=== PATIENT | female | born 1975 | race Two or more races ===

== ENCOUNTER 2017-02-06 18:03 | Emergency (ER) | payer BC, SELFPAY ==
--- NOTE | ~2017-02-06 | ER ---
PATIENT'S NAME: SHAI MONTES [facility] AGE: 41 Y [address] ROOM: [place] [id number] LOCATION: ED ADMIT DATE: 02/06/2017 ER/Outpatient Report DISCHARGE DATE: 02/06/2017 FAMILY PHYSICIAN: Max Pablo MD ATTENDING PHYSICIAN: Rd Kennedy Time of Arrival: 1818 hours. Time of Evaluation: 1825 hours. CHIEF COMPLAINT: Heartburn. HISTORY OF PRESENT ILLNESS: The patient is a 41-year-old female, who presents to the emergency department today with chief complaint of heartburn. She reports this started yesterday. She has had nausea, no vomiting. It is in the mid epigastric region and radiates all the way up to her neck. She does have a little bit of radiation to her left lower quadrant. She does have some chills. She has some chronic constipation. She reports a burning type pain. She had similar symptoms in September and presented to the emergency department. GI cocktail was given when this resulted. PAST MEDICAL HISTORY: Chronic migraines, gait disorder, spondylolisthesis, pseudotumor cerebri, and chronic pain. PAST SURGICAL HISTORY: Cholecystectomy, , and hysterectomy. SOCIAL HISTORY: The patient smokes a quarter-pack per day for 25 years. Denies any alcohol or illicit drug use. ALLERGIES: BACTRIM. MEDICATIONS: Please see list. PRIMARY CARE DOCTOR: Max Pablo M.D. REVIEW OF SYSTEMS: All systems are reviewed by myself and are negative with the exception of those discussed in the HPI and past medical history. PATIENT'S NAME: SHAI MONTES [facility] AGE: 41 Y [address] ROOM: [place] [address] LOCATION: [facility] ADMIT DATE: 02/06/2017 ER/Outpatient Report DISCHARGE DATE: 02/06/2017 FAMILY PHYSICIAN: Max Pablo MD ATTENDING PHYSICIAN: Rd Kennedy PHYSICAL EXAMINATION: VITAL SIGNS: Weight 59.1 kg. Blood pressure 110/71, pulse 99, respiratory rate 16, temperature 97.9, and oxygen saturation 97% on room air. GENERAL: The patient is a 41-year-old female, who appears at stated age, in mild acute distress at this time, well developed, well nourished. HEENT: Head: Normocephalic, atraumatic. Pupils are equal, round, and reactive to light. Oropharynx is clear. Mucous membranes are moist. NECK: Supple. There is no nuchal rigidity. CARDIOVASCULAR: Regular rate and rhythm. No murmurs, rubs, or gallops. LUNGS: Clear to auscultation bilaterally. No wheezes, rales, or rhonchi. ABDOMEN: Soft. Mild midepigastric tenderness to palpation. No rebound, rigidity, or guarding. Positive bowel sounds. MUSCULOSKELETAL: The patient moves all 4 extremities. 5/5 muscle strength. SKIN: Warm and dry. There are no rashes or lesions noted. LABORATORY DATA AND X-RAYS: Labs and x-rays are obtained. EKG is obtained and shows sinus rhythm with a rate of 91. Normal axis. Normal interval. No ST elevation, ST depression, or T-wave inversions. CBC is normal. CMP is normal. Coags are normal. LFTs normal. Magnesium is normal. CK is normal. CK-MB is normal. Troponin is less than 0.04. Magnesium is normal. Lipase is normal. H. pylori is negative. Repeat 2-hour cardiac enzymes are obtained, they are normal. Repeat 2-hour EKG is obtained and showed sinus rhythm with a rate of 77. Normal axis. Normal interval. No ST elevation, ST depression, or T-wave inversions. IMPRESSION: 1. Acute midepigastric abdominal pain. 2. Initial visit. EMERGENCY DEPARTMENT COURSE: The patient is brought back to the examination room. Seen and evaluated by myself. An IV is established. Laboratory analysis and imaging are obtained as described above. While the patient's symptoms did sound GI in nature, certainly with her smoking history, I did feel that cardiac workup was essential. We did do 2-hour cardiac enzymes, they are normal. Rest of her lab work is normal. Chest x-ray is normal. I have recommended close followup with primary care doctor, Dr. Pablo in 2 days for re-evaluation. I have also recommended close followup with Gastroenterology. I have asked that she follow up with them. She is to call to make an appointment for possible endoscopy. I have written a prescription for Carafate for home. The patient was given a GI cocktail, a liter of normal saline IV here as well as 2 mg of morphine with improvement of the patient's symptoms. The patient is agreeable to plan without further questions at this time. PATIENT'S NAME: SHAI MONTES [facility] AGE: 41 Y [address] ROOM: [place], [place] [address] LOCATION: [facility] ADMIT DATE: 02/06/2017 ER/Outpatient Report DISCHARGE DATE: 02/06/2017 FAMILY PHYSICIAN: Max Pablo MD ATTENDING PHYSICIAN: Rd Kennedy DISPOSITION: The patient is discharged to home in good condition. DO MAGDALENA [place]/radha /[id number] d: 02/07/17 0229 t: 02/08/17 1341, OUTPATIENT REPORT
[~2017-02-06 18:03] MED LIST: CALCIUM 500 +1 EACH PO; DHE SUB-Q; ELAVIL25 MG PO; FLEXERIL10 MG PO; LEVOTHROID (S100 MCG PO; PERCOCET PO; PROTONIX40 MG PO; REGLAN10 MG PO; THERA-VITE W/ B1 TAB PO; TOPAMAX25 MG PO; ULTRAM50 MG PO; XANAX1 MG PO; ZANTAC300 MG PO; ZOFRAN4 MG PO; [UNRECOGNIZED DRUG - REMARK] PO
[2017-02-06 18:50] LABS: BASOPHIL # 0.1 K/uL (0.0-0.2); BASOPHIL % 0.8 %; EOSINOPHIL # 0.3 K/uL (0.0-0.5); EOSINOPHIL % 3.3 %; HEMATOCRIT 42.2 % (33.0-46.0); HEMOGLOBIN 13.9 g/dL (11.0-15.0); IMMATURE GRANULOCYTE # 0.1 K/uL (0.0-0.3); IMMATURE GRANULOCYTE % 0.6 %; LYMPHOCYTE # 2.6 K/uL (0.8-4.0); LYMPHOCYTE % 29.2 %; MCH 28.1 pg (27.0-34.0); MCHC 32.9 gm/dL (32.0-36.5); MCV 85.4 fl (83.0-98.0); MONOCYTE # 0.4 K/uL (0.0-1.0); MPV 9.3 fl (9.4-12.4); NEUTROPHIL # (ANC) 5.5 K/uL (1.8-7.8); NEUTROPHIL % 62.1 %; NRBC % 0 /100WBC (0-0.00); PLATELET COUNT 367 K/uL (150-450); RBC 4.94 M/uL (3.50-5.50); RDW-CV 12.5 % (11.9-14.6); WBC 8.9 K/uL (4.0-11.0)
[2017-02-06 19:00] LABS: PROTIME 10.4 SECONDS (9.6-11.1); PTT 29 SECONDS (25-32)
[2017-02-06 19:10] LABS: ALBUMIN 3.8 gm/dL (3.5-5.0); ALK PHOS 54 IU/L (33-138); ALT 14 IU/L (12-78); ANION GAP 11.7 (10.0-19.0); AST 13 IU/L (10-40); BLOOD UREA NITROGEN 10 mg/dL (6-24); CALCIUM 8.7 mg/dL (8.5-10.5); CHLORIDE 110 mMol/L (96-110); CO2 24 mMol/L (22-32); CPK 79 IU/L (21-215); CREATININE 0.9 mg/dL (0.5-1.1); ESTIMATED GFR (MDRD EQUATION) > 60; MAGNESIUM 2.1 mg/dL (1.3-2.6); POTASSIUM 3.7 mMol/L (3.7-5.1); SODIUM 142 mMol/L (135-145); TOTAL PROTEIN 7.5 g/dL (6.0-8.4)
[2017-02-06 19:12] LABS: TOTAL BILIRUBIN 0.3 mg/dL (0.0-1.5)
[2017-02-06 21:13] LABS: CPK 64 IU/L (21-215)
[2017-03-07] MEDS ORDERED: XANAX PO (14:07)
[2017-03-07] MEDS ORDERED: FLEXERIL10 MG PO (14:07)
[2017-03-07] MEDS ORDERED: REGLAN10 MG PO (14:08)
[2017-03-07] MEDS ORDERED: TOPAMAX25 MG PO (14:10)
[2017-03-07] MEDS ORDERED: OSCAL + D500 MG PO (14:11)
[2017-03-07] MEDS ORDERED: SYSTANE ULTRA 010 ML OPHTH (14:12)
== END 2017-02-06 21:28 | disposition disaster alternative care site (69) ==
LOC: GMED 18:03
PROVIDERS: Emergency Medicine
DX: R10.13 Epigastric pain (principal); F17.210 Nicotine dependence, cigarettes, uncomplicated; Z90.710 Acquired absence of both cervix and uterus; Z90.49 Acquired absence of other specified parts of digestive tract; Z88.1 Allergy status to other antibiotic agents
CPT/HCPCS: J0780; J1200; J2270; J2405; J7030

== ENCOUNTER → 2017-03-08 | Day surgery (SDC) | payer BC, SELFPAY ==
[~2017-03-08] VITALS: Ht 162.6 cm; Wt 56.1 kg
[~2017-03-08] MED LIST changes: +OSCAL + D500 MG PO; +SYSTANE ULTRA 010 ML OPHTH; +XANAX PO
== END | disposition disaster alternative care site (69) ==
LOC: GPOC 03-07 13:00 → GEND 08:55 → GPOC 05-22 08:00 → GOPP 05-22 08:00 → GEND 05-23 08:00 → GSIP 05-23 08:00
PROC: 0DB68ZX Excision of Stomach, Via Natural or Artificial Opening Endoscopic, Diagnostic (ICD-10-PCS; principal; 2017-03-08)
PROC: 0DB98ZX Excision of Duodenum, Via Natural or Artificial Opening Endoscopic, Diagnostic (ICD-10-PCS; 2017-03-08)
PROC: 0DBE8ZX Excision of Large Intestine, Via Natural or Artificial Opening Endoscopic, Diagnostic (ICD-10-PCS; 2017-03-08)
DX: K29.50 Unspecified chronic gastritis without bleeding (principal); K31.89 Other diseases of stomach and duodenum; K64.4 Residual hemorrhoidal skin tags; K64.8 Other hemorrhoids; K62.5 Hemorrhage of anus and rectum
CPT/HCPCS: J7030

== ENCOUNTER → 2017-06-15 | Outpatient (CLI) | payer BC ==
[2017-06-15 10:00] LABS: ALBUMIN 3.6 gm/dL (3.5-5.0); ANION GAP 8.6 (10.0-19.0); CALCIUM 8.6 mg/dL (8.5-10.5); POTASSIUM 3.6 mMol/L (3.7-5.1); TOTAL BILIRUBIN 0.2 mg/dL (0.0-1.5); TOTAL PROTEIN 7.3 g/dL (6.0-8.4)
== END | disposition disaster alternative care site (69) ==
LOC: LNHI 09:29
PROVIDERS: Internal Medicine Interventional Cardiology
DX: R07.9 Chest pain, unspecified (principal); I34.1 Nonrheumatic mitral (valve) prolapse

== ENCOUNTER → 2017-06-15 | Outpatient (CLI) | payer BC ==
--- NOTE | ~2017-06-15 | OR ---
PATIENT'S NAME: SHAI MONTES [facility] AGE: 41 Y [address] ROOM: [place] [address] LOCATION: [facility] ADMIT DATE: 06/15/2017 OR/Procedure Report DISCHARGE DATE: FAMILY PHYSICIAN: Max Pablo MD ATTENDING PHYSICIAN: KIRTI ACHARYA SURGEON: Amanuel Jacques MD MINIATURE SET BUILDER: DATE OF PROCEDURE: 06/15/2017 CALCIUM SCORE REPORT: REFERRING PHYSICIAN: Kirti Acharya MD INDICATION FOR STUDY: Chest pain, to evaluate for coronary artery disease. DESCRIPTION OF PROCEDURE: The procedure was explained to the patient and consent was obtained. Calcium scoring analysis was performed using 64-slice CT scanner. The total calcium score is 0. The noncardiac findings will be reported separately by the radiologist. MD MARVA PELAEZ/maricruzl /[id number] d: 06/19/17 1438 t: 06/30/17 1614, OPERATIVE SUMMARY
--- NOTE | ~2017-06-15 | ECHO ---
Transthoracic Echocardiography Report (TTE) Demographics Patient Name SHAI MONTES Date of Study 06/15/2017 Patient Number [id number] Visit Number [id number] Date of 1975 Room Number Accession Number [id number] Gender Female Age 41 year(s) Referring Samy Frausto MD Police Shift Commander Annette Rudd RVAnderson, Physician RDSERENA Physician Interpreting Amanda Cotto [employer] Sales Agent Physician MD Supervising Ordering Physician Amanda Cotto MD/MARKUS CLIFFORD Nurse Stress Cream Dipper Conclusions Contractility Score Summary Normal Left Ventricular contractility was noted. Summary Normal left ventricle size and function. The estimated left ventricular ejection fraction is 50%. Diastolic assessment reveals normal relaxation. Mild prolapse of the anterior mitral valve leaflet(s). Mild mitral regurgitation by color Doppler. Normal right ventricle structure and function. Procedure Type of Study TTE procedure:2D Echocardiogram. Procedure Date Date: 06/15/2017 Start: 01:13 PM Study Location: Echo Lab Technical Quality: Good visualization Indications:Mitral regurgitation and Mitral valve prolapse. Appropriate Use Criteria: 8 Patient Status: Routine Rhythm: NSR HR: 83 bpm BP: 105/63 mmHg M-Mode/2D Measurements LV Diastolic Dimension: 4.21 cm LV Systolic Dimension: 3.25 cm LV Septum Diastolic: 0.77 cm LV PW Diastolic: 0.71 cm AO Root Dimension: 2.1 cm Cardiac Output: 2.94 l/min LA Dimension: 2.7 cm EF Estimated: 50 % LVOT: 1.9 cm LVOT VTI: 12.5 cm RV Base: 2.06 cm LV Stroke volume: 35.42 ml RV Length: 6.86 cm TAPSE: 1.81 cm TDI-S': 11.4 cm/s Doppler Measurements AV Peak Velocity: 1.22 m/s MV Peak E-Wave: 0.68 m/s AV Peak Gradient: 5.95 mmHg MV Peak A-Wave: 0.48 m/s AV Mean Gradient: 4 mmHg MV E/A Ratio: 1.41 LVOT Peak Velocity: 0.64 m/s MV P1/2t: 48 msec TR Gradient:13.54 mmHg PV Peak Velocity: 0.65 m/s Estimated RAP:5 mmHg PV Peak Gradient: 1.69 mmHg Estimated RVSP: 19 mmHg Estimated PASP: 18.54 mmHg E' Septal Velocity: 0.11 m/s A' Septal Velocity: 0.05 m/s E' Lateral Velocity: 0.14 m/s A' Lateral Velocity: 0.11 m/s Findings Left Ventricle Normal left ventricle size and function. Diastolic assessment reveals normal relaxation. Right Ventricle Normal right ventricle structure and function. Left Atrium Normal left atrial size. There is no evidence of patent foramen ovale or atrial septal defect by color Doppler. Right Atrium Normal right atrial size. IVC measures 1.36 cm with inspiratory collapse. Mitral Valve Mild prolapse of the anterior mitral valve leaflet(s). Mild mitral regurgitation by color Doppler. Aortic Valve Normal aortic valve structure and function. Tricuspid Valve Normal tricuspid valve structure and function. Trivial tricuspid regurgitation by color Doppler. Pulmonic Valve Normal pulmonic valve structure and function. Pericardial Effusion No evidence of pericardial effusion. Miscellaneous Visualized portions of the aortic root and ascending aorta appear normal in size. Pleural Effusion No evidence of pleural effusion. Contractility Score LV regional wall motion:(0-Non visualized 1-Normal 2-Hypokinesis 3-Akinesis 4-Dyskinesis 5-Aneurysm) Signature dtt: JEAN ACHARYA dtd: 06/15/17 1313 Physician Self Edit
== END | disposition disaster alternative care site (69) ==
LOC: GRAD 12:34
DX: I34.0 Nonrheumatic mitral (valve) insufficiency (principal); I34.1 Nonrheumatic mitral (valve) prolapse; R07.9 Chest pain, unspecified

== ENCOUNTER 2017-08-09 19:35 | Emergency (ER) | payer BC ==
--- NOTE | ~2017-08-09 | ER ---
[facility] 41 Y [address] ROOM: [place] [address] LOCATION: ED ADMIT DATE: 08/09/2017 ER/Outpatient Report DISCHARGE DATE: 08/09/2017 FAMILY PHYSICIAN: Max Pablo MD ATTENDING PHYSICIAN: Som Bingham Time of Arrival: 1935 hours. Time of Evaluation: 1940 hours. CHIEF COMPLAINT: Left shoulder pain, jaw pain. HISTORY OF PRESENT ILLNESS: The patient is a 41-year-old female who presents to the emergency department today with chief complaint of left shoulder pain, jaw pain. She reports she had her arm up on a stand while sitting, shows that she has a pain in the left shoulder and just never got any better. She does have some numbness, tingling down into her left arm. She denies any chest pain. She does report she has a migraine. She also has migraines that are very similar to previous migraines, and this is not the worst headache of her life. It is not sudden onset. It is currently 8/10 in severity. She reports the arm is 7/10. This is kind of a dull type pain. Does have some nausea but no vomiting. No urinary frequency or urgency. PAST MEDICAL HISTORY: Chronic migraines, gait disorder, spondylolisthesis, pseudotumor cerebri, and chronic pain. PAST SURGICAL HISTORY: Cholecystectomy, , hysterectomy. SOCIAL HISTORY: The patient smokes quarter pack per day for 25 years. Denies any alcohol or illicit drug use. ALLERGIES: BACTRIM. MEDICATIONS: Please see list. PRIMARY CARE DOCTOR: Max Pablo M.D. REVIEW OF SYSTEMS: [facility]GE[facility] 41 Y [address] ROOM: [place] [address] LOCATION: [facility] ADMIT DATE: 08/09/2017 ER/Outpatient Report DISCHARGE DATE: 08/09/2017 FAMILY PHYSICIAN: Max Pablo MD ATTENDING PHYSICIAN: Som Bingham All systems are reviewed by myself and negative with the exception of those discussed in HPI and past medical history. PHYSICAL EXAMINATION: VITAL SIGNS: Weight 61.5 kg, blood pressure 116/64, pulse 109, respiratory rate 16, temperature 98.9, oxygen saturation 98% on room air. GENERAL: The patient is a 41-year-old female, who appears stated age. She appears in no acute distress. HEENT: Head: Normocephalic, atraumatic. Pupils are equal, round, and reactive to light and accommodation. Extraocular motions are intact. Nares are patent bilaterally. TMs are clear. Oropharynx is clear. NECK: Supple. There is some mild tenderness to palpation on the left paraspinal musculature. SKIN: Warm and dry. There are no rashes or lesions noted. LABORATORY DATA AND X-RAYS: EKG is obtained, was interpreted by myself, shows sinus rhythm with a rate of 93, normal axis, normal interval. No ST elevation, ST depression, or T-wave inversions. This was interpreted in 195. Two-view chest x-ray shows no acute process. CBC is normal. CMP is normal. Coags are normal. Magnesium is normal. Cardiac enzymes are normal. LFTs are normal. IMPRESSION: 1. Cervical radiculopathy. 2. Migraine. 3. Initial visit. EMERGENCY DEPARTMENT COURSE: The patient was brought back to the examination room. Seen and evaluated by myself. IV was established. Laboratory analysis and imaging are obtained as described above. The patient is given a liter of normal saline. She did just take Reglan, so we did give 50 mg of Benadryl IV. This resulted in improvement of the patient's symptoms. The patient does have a history of long-time smoking and family history of heart disease, so we did do the cardiac workup. This is unremarkable. I do think she is at low risk and this does sound more like a cervical radiculopathy. I will place the patient on steroids. I have discussed following up with Dr. Pablo in 2 to 3 days for re- evaluation. DISPOSITION: The patient discharged home in good condition. PATIENT'S NAME: SHAI MONTES [facility] AGE: 41 Y [address] ROOM: [place] [address] LOCATION: ED ADMIT DATE: 08/09/2017 ER/Outpatient Report DISCHARGE DATE: 08/09/2017 FAMILY PHYSICIAN: Max Pablo MD ATTENDING PHYSICIAN: Som Bingham DO KJMark/modl /[id number] d: 08/10/17 0142 t: 08/11/17 0549, OUTPATIENT REPORT
[2017-08-09 20:13] LABS: BASOPHIL # 0.1 K/uL (0.0-0.2); BASOPHIL % 1.1 %; EOSINOPHIL # 0.3 K/uL (0.0-0.5); EOSINOPHIL % 4.8 %; HEMATOCRIT 39.2 % (33.0-46.0); HEMOGLOBIN 13.3 g/dL (11.0-15.0); IMMATURE GRANULOCYTE % 0.3 %; LYMPHOCYTE # 2.5 K/uL (0.8-4.0); LYMPHOCYTE % 37.9 %; MCHC 33.9 gm/dL (32.0-36.5); MCV 79.7 fl (83.0-98.0); MONOCYTE # 0.4 K/uL (0.0-1.0); MONOCYTE % 5.7 %; MPV 9.7 fl (9.4-12.4); NEUTROPHIL # (ANC) 3.3 K/uL (1.8-7.8); NEUTROPHIL % 50.2 %; NRBC % 0 /100WBC (0-0.00); PLATELET COUNT 282 K/uL (150-450); RBC 4.92 M/uL (3.50-5.50); RDW-CV 13.2 % (11.9-14.6); WBC 6.6 K/uL (4.0-11.0)
[2017-08-09 20:22] LABS: INR - (THERAPEUTIC) 0.99 (0.92-1.07); PROTIME 10.4 SECONDS (9.8-11.4); PTT 29 SECONDS (25-32)
[2017-08-09 20:31] LABS: ALBUMIN 3.7 gm/dL (3.5-5.0); ALK PHOS 56 IU/L (33-138); ALT 14 IU/L (12-78); BLOOD UREA NITROGEN 14 mg/dL (6-24); CALCIUM 8.5 mg/dL (8.5-10.5); CHLORIDE 109 mMol/L (96-110); CO2 21 mMol/L (22-32); CPK 97 IU/L (21-215); CREATININE 0.9 mg/dL (0.5-1.1); SODIUM 138 mMol/L (135-145); TOTAL PROTEIN 7.6 g/dL (6.0-8.4)
[2017-08-09 20:36] LABS: ANION GAP 11.7 (10.0-19.0); AST 14 IU/L (10-40); MAGNESIUM 2.2 mg/dL (1.8-2.6); POTASSIUM 3.7 mMol/L (3.7-5.1); TOTAL BILIRUBIN 0.1 mg/dL (0.0-1.5)
== END 2017-08-09 21:29 | disposition disaster alternative care site (69) ==
LOC: GMED 19:35
PROVIDERS: Emergency Medicine
DX: M54.12 Radiculopathy, cervical region (principal); G43.909 Migraine, unspecified, not intractable, without status migrainosus; F17.210 Nicotine dependence, cigarettes, uncomplicated; R26.9 Unspecified abnormalities of gait and mobility; Z90.49 Acquired absence of other specified parts of digestive tract; Z90.710 Acquired absence of both cervix and uterus; Z98.890 Other specified postprocedural states; Z88.1 Allergy status to other antibiotic agents; Z79.891 Long term (current) use of opiate analgesic; Z79.899 Other long term (current) drug therapy
CPT/HCPCS: J1200; J7030